=== PATIENT | male | born 1995 | race Caucasian/White ===

== ENCOUNTER 2021-05-27 22:16 | Emergency (ER) | payer BC, OTHER ==
[2021-05-28] MEDS ORDERED: PROTONIX 40 MG40 M1 PO (04:17)
== END 2021-05-28 04:28 | disposition home or self-care (01) ==
LOC: ER1 22:16
DX: T18.128A Food in esophagus causing other injury, initial encounter (principal); Z20.822 Contact with and (suspected) exposure to COVID-19; Z90.89 Acquired absence of other organs; W45.8XXA Other foreign body or object entering through skin, initial encounter
CPT/HCPCS: 43247; 96374; 99283; J0330; J1610; J2704; U0002